=== PATIENT | female | born 1935 | race Caucasian/White ===

== ENCOUNTER 2019-02-20 10:32 | Inpatient (IN) | payer MEDICARE, OTHER ==
[2019-02-20 11:12] LABS: #Lymphocytes 1.5 thou/uL (1.20-3.40); #Monocytes 0.6 thou/uL (0.11-0.59); #Neutrophils 4.6 thou/uL (1.40-6.50); %Basophils 0.6 % (0.0-1.0); %Eosinophils 0.6 % (0.0-10.0); %Lymphocytes 21.7 % (21.0-51.0); %Monocytes 8.5 % (0.0-10.0); %Neutrophils 68.5 % (42.0-75.0); Hemoglobin 12.2 g/dL (12.0-16.0); Mean Corpuscular Hemoglobin 33.7 pg (27.0-31.0); Mean Platelet Volume 6.7 fL (7.4-10.4); Platelet Count 294 thou/uL (130-400); RBC Distribution Width 12.1 % (11.5-14.5); Red Blood Cell (RBC) Count 3.63 mill/uL (4.20-5.40); White Blood Cell (WBC) Count 6.7 thou/uL (4.8-10.8)
[2019-02-20 11:21] LABS: Bacteria/HPF 4+ HPF (None Seen); Bilirubin Negative (Negative); Blood, Urine 1+ (Negative); Clarity Turbid (Clear); Glucose, Urine (Dipstick) Normal (Negative); Leukocyte Negative Leu/uL (Negative); Nitrite Negative (Negative); Protein, Urine (Dipstick) Negative (Neg-Trace); RBC/HPF 0-3 HPF (0-3); Squamous Epithelial 0-3 HPF (0-3); Urobilinogen Normal mg/dL (Less than 2); WBC/HPF 0-3 HPF (0-3)
--- NOTE | 2019-02-20 11:24 | RAD ---
Exam: Chest one view HISTORY:Altered mental status. Decreased O2 saturation Comparison: None FINDINGS: Cardiac silhouette: Normal Aorta: Unremarkable Pulmonary vessels: Normal Costophrenic angles: Clear LUNGS: Bibasilar opacities. Pneumothorax: None Osseous abnormalities: None IMPRESSION: Bibasilar opacities due to atelectasis, pneumonia or aspiration. Continued surveillance i s recommended.
[2019-02-20 11:37] LABS: ALT (SGPT) 24 U/L (8-55); AST (SGOT) 21 U/L (5-34); Albumin 4.4 g/dL (3.4-4.8); Alkaline Phosphatase 105 U/L (40-110); Anion Gap 16 mmol/L (10-20); BUN (Urea Nitrogen) 19 mg/dL (9.8-20.1); Bilirubin, Total 0.3 mg/dL (0.2-1.2); Calc. Creatinine Clearance 0 mL/min (70-130); Calcium 9.5 mg/dL (7.8-10.44); Carbon Dioxide 25 mmol/L (23-31); Chloride 101 mmol/L (98-107); Estimated GFR-MDRD 45; Globulin 2.8 g/dL (2.4-3.5); Glucose 120 mg/dL (83-110); Potassium 4.6 mmol/L (3.5-5.1); Protein, Total 7.2 g/dL (6.0-8.3); Sodium 137 mmol/L (136-145)
[2019-02-20] MEDS ORDERED: cefTRIAXone\\ROCEPHIN 1 GM VIAL ONE ×2 (11:41→12:25)
[2019-02-20] MEDS ORDERED: Sodium Chloride 0.9% 100 ML ONE (11:41)
--- NOTE | 2019-02-20 11:51 | CT ---
Head CT without contrast 02/20/2019: HISTORY: Dementia, altered mental status TECHNIQUE: Axial CT imaging at 5 mm intervals from vertex through skull base without contrast FINDINGS: The visualized paranasal sinuses and mastoid air cells are well aerated. No displaced blaire rial fracture. No intracranial hemorrhage, midline shift, or mass effect. There is cerebral volume loss and prominence of the CSF containing spaces, particularly the lateral v entricles. The degree of lateral ventricular dilation appears slightly out of proportion for the degree of cerebral volume loss. There is periventricular and deep white matter hypodensity suggesting small vessel disease. Transependymal flow of CSF cannot be fully excluded. IMPRESSION: No intracranial hemorrhage. Prominence of the lateral ventricles with periventricular hyp odensity. This constellation of findings may signify normal pressure hydrocephalus. Clinical correlation is required as an alternative consideration would be cerebral volume loss and significant small vessel disease.
[2019-02-20] MEDS ORDERED: Acetaminophen 650 MG Suppository PR PRN (14:07)
[2019-02-20] MEDS ORDERED: Acetaminophen 325 MG TAB PO PRN (14:07)
[2019-02-20] MEDS ORDERED: Ondansetron PF 4 MG/2 ML Vial IVP PRN (14:07)
[2019-02-20] MEDS ORDERED: Ondansetron ODT 4 MG TAB PO PRN (14:07)
[2019-02-20] MEDS ORDERED: Sodium Chloride 0.9% 1,000 ML IV SCH (14:15)
--- NOTE | 2019-02-20 14:19 | PDOC.HHP ---
Hospitalist HPI - History of Present Illness AMS History of Present Illness: Ms. Vasquez is an 84 year old woman presenting, per ED, with AMS (known dementia at baseline) and possible UTI. Transferred here from [facility]. Patient reportedly had low sats and was more lethargic than usual. Difficulty obtaining information from patient given underlying dementia. She is not very communicative. ED Course: Laboratory studies notable for elevated lactic acid 4.1, FBC normal. LFTs unremarkable. Creatinine elevated at 1.14, GFR is 45. No previous to compare to. UA notable for 1+ blood, negative for nitrates, WBC and leukocyte esterase. Bacteria 4+. CXR showed bibasilar opacities said to represent atelectasis vs. pneumonia vs. aspiration. CT Head without any acute intracranial hemorrhage. There was prominence of lateral ventricles with periventricular hypodensity, may signify normal pressure hydrocephalus. Alternative would be cerebral volume loss and significant vessel disease. She was given IVF and started on IV Abx (Ceftriaxone). Hospitalist ROS - Review of Systems ROS unobtainable: due to mental status (Undelrying dementia, potentially worse from baseline) Hospitalist History - Past Medical History Source: RN notes reviewed Cardiac: reports: HTN Psych: reports: Depression, Other (Alzheimer's, Aggression, Paranoia) Musculoskeletal: reports: Osteoarthritis Other Medical History: Vitamin D Deficiency Venous insufficiency Edema - Social History Alcohol: reports: None Drugs: reports: none Living Situation: Retirement - Exam General Appearance: NAD Eye: PERRL, anicteric sclera ENT: normocephalic atraumatic, no oropharyngeal lesions Neck: supple Heart: RRR, no murmur, no gallops Respiratory: CTAB, no wheezes, no rales, no ronchi, normal chest expansion, no tachypnea Gastrointestinal: soft, non-tender, non-distended, normal bowel sounds, no palpable masses, no guarding, no rigidity Extremities: no cyanosis, no clubbing, no edema Skin: normal turgor, no lesions, no rashes Neurological - other findings: Able to follow some commands Musculoskeletal: normal tone, normal strength Hospitalist Results - Labs Result Diagrams: 02/20/19 11:01 02/20/19 14:48 Lab results: WBC 6.7 thou/uL (4.8-10.8) 02/20/19 11:01 Hgb 12.2 g/dL (12.0-16.0) 02/20/19 11:01 Hct 37.1 % (36.0-47.0) 02/20/19 11:01 MCV 102.0 fL (78.0-98.0) H 02/20/19 11:01 Plt Count 294 thou/uL (130-400) 02/20/19 11:01 Neutrophils % 68.5 % (42.0-75.0) 02/20/19 11:01 Sodium 137 mmol/L (136-145) 02/20/19 11:01 Potassium 4.6 mmol/L (3.5-5.1) 02/20/19 11:01 Chloride 101 mmol/L (98-107) 02/20/19 11:01 Carbon Dioxide 25 mmol/L (23-31) 02/20/19 11:01 BUN 19 mg/dL (9.8-20.1) 02/20/19 11:01 Creatinine 1.14 mg/dL (0.6-1.1) H 02/20/19 11:01 Glucose 120 mg/dL (83-110) H 02/20/19 11:01 Lactic Acid 4.1 mmol/L (0.5-2.2) H* 02/20/19 11:01 Calcium 9.5 mg/dL (7.8-10.44) 02/20/19 11:01 Total Bilirubin 0.3 mg/dL (0.2-1.2) 02/20/19 11:01 AST 21 U/L (5-34) 02/20/19 11:01 ALT 24 U/L (8-55) 02/20/19 11:01 Alkaline Phosphatase 105 U/L (40-110) 02/20/19 11:01 Serum Total Protein 7.2 g/dL (6.0-8.3) 02/20/19 11:01 Albumin 4.4 g/dL (3.4-4.8) 02/20/19 11:01 Urine Ketones Negative mg/dL (Negative) 02/20/19 10:56 Urine Blood 1+ (Negative) A 02/20/19 10:56 Urine Nitrite Negative (Negative) 02/20/19 10:56 Ur Leukocyte Esterase Negative Aiyana/uL (Negative) 02/20/19 10:56 Urine RBC 0-3 HPF (0-3) 02/20/19 10:56 Urine WBC 0-3 HPF (0-3) 02/20/19 10:56 Ur Squamous Epith Cells 0-3 HPF (0-3) 02/20/19 10:56 Urine Bacteria 4+ HPF (None Seen) A 02/20/19 10:56 - Radiology Interpretation CT scan - head Status: report reviewed by me Hospitalist H&P A/P - Problem (1) Lactic acid acidosis Code(s): E87.2 - ACIDOSIS Status: Acute (2) ROGERS (acute kidney injury) Code(s): N17.9 - ACUTE KIDNEY FAILURE, UNSPECIFIED Status: Acute (3) Lethargy Code(s): R53.83 - OTHER FATIGUE Status: Acute (4) UTI (urinary tract infection) Status: Acute (5) History of hypertension Code(s): Z86.79 - PERSONAL HISTORY OF OTHER DISEASES OF THE CIRCULATORY SYSTEM Status: Acute (6) History of edema Code(s): Z87.898 - PERSONAL HISTORY OF OTHER SPECIFIED CONDITIONS Status: Acute (7) Dementia Code(s): F03.90 - UNSPECIFIED DEMENTIA WITHOUT BEHAVIORAL DISTURBANCE Status: Acute - Plan Plan: IV abx, Zosyn as per Dr. Guadarrama Continue IVF, 125 cc/hr NS, will add BNP to labs given history of edema. Further imaging with CT Chest Repeat BMP to assess for renal function improvement, repeat lactic acid. Bladder scan to assess for urinary retention. [place]or if necessary. (Straight cath done in ED, RN unsure how much output there was). UCx pending. Monitor BP, hold antihypertensives for now, given BP is on low side. Obtain further information regarding baseline mental status and mobility from nephew/NH. Bedside dysphagia screening, to assess swallow capabilities, NPO until done. Potential risk for aspiration. CODE STATUS: FULL SURROGATE DECISION MAKER/MPOA: marcia Bradley ([phone]).
[2019-02-20 14:43] VITALS: BMI 23.2
[2019-02-20 15:14] LABS: Lactic Acid 1.3 mmol/L (0.5-2.2)
[2019-02-20 15:18] LABS: Anion Gap 13 mmol/L (10-20); BUN (Urea Nitrogen) 21 mg/dL (9.8-20.1); CK (CPK) 136 U/L (29-168); Calc. Creatinine Clearance 42 mL/min (70-130); Calcium 8.5 mg/dL (7.8-10.44); Carbon Dioxide 21 mmol/L (23-31); Chloride 106 mmol/L (98-107); Estimated GFR-MDRD 63; Glucose 102 mg/dL (83-110); Magnesium 1.8 mg/dL (1.6-2.6); Potassium 4.4 mmol/L (3.5-5.1); Sodium 136 mmol/L (136-145)
--- NOTE | 2019-02-20 15:59 | CT ---
CT CHEST WITHOUT CONTRAST: INDICATIONS: Assess for aspiration pneumonitis. CORRELATION: Chest film from 02/20/2019 which showed bibasilar opacities. FINDINGS: Mild vascular congestion. Bibasilar linear and hazy parenchymal changes are seen. There is no conflue nt consolidation or infiltrate. Findings suggest atelectasis, more prominent in the right lung base. A component of infectious infiltrate is not completely excluded, however, there is no consolidation o r confluent infiltrate present. There is a fixed diaphragmatic hernia which does contribute to opacity seen on plain film. The mediastinum is unremarkable. Images through the upper abdomen are unremarkable with evidence of a left renal cyst. IMPRESSION: 1. There are bibasilar opacities which are predominantly pleural-based and reticular in appearance pereira ggesting bibasilar atelectasis, more prominent on the right. A component of infectious infiltrate can not be excluded, especially in the right lung base posteriorly. 2. Moderate sized fixed diaphragmatic hernia. POS: [facility]
[2019-02-20] MEDS: Piperacillin/Tazobactam 3.375 GM in Sodium Chloride 0.9% 100 ML IVPB SCH ×2 (17:04→23:32)
[2019-02-20] MEDS: Sodium Chloride 0.9% 1,000 ML IV SCH (18:49)
[2019-02-20] MEDS ORDERED: Famotidine 20 MG TAB PO SCH (21:00)
[2019-02-21] MEDS ORDERED: Loratadine 10 MG TAB PO PRN (01:16)
[2019-02-21 05:25] LABS: #Lymphocytes 1.4 thou/uL (1.20-3.40); #Monocytes 0.7 thou/uL (0.11-0.59); #Neutrophils 3.8 thou/uL (1.40-6.50); %Basophils 0.3 % (0.0-1.0); %Eosinophils 0.8 % (0.0-10.0); %Lymphocytes 23.6 % (21.0-51.0); %Monocytes 11.3 % (0.0-10.0); %Neutrophils 64.1 % (42.0-75.0); Hemoglobin 10.5 g/dL (12.0-16.0); Mean Corpuscular HGB CONC 32.7 g/dL (32.0-36.0); Mean Corpuscular Hemoglobin 32.5 pg (27.0-31.0); Mean Corpuscular Volume 99.3 fL (78.0-98.0); Mean Platelet Volume 6.9 fL (7.4-10.4); Platelet Count 269 thou/uL (130-400); RBC Distribution Width 12.1 % (11.5-14.5); Red Blood Cell (RBC) Count 3.22 mill/uL (4.20-5.40); White Blood Cell (WBC) Count 5.9 thou/uL (4.8-10.8)
[2019-02-21] MEDS: Piperacillin/Tazobactam 3.375 GM in Sodium Chloride 0.9% 100 ML IVPB SCH ×4 (05:25→23:24)
[2019-02-21] MEDS: Sodium Chloride 0.9% 1,000 ML IV SCH ×2 (05:27→20:23)
[2019-02-21 05:48] LABS: Lactic Acid 2.4 mmol/L (0.5-2.2)
[2019-02-21 05:56] LABS: Anion Gap 14 mmol/L (10-20); BUN (Urea Nitrogen) 16 mg/dL (9.8-20.1); Calc. Creatinine Clearance 40 mL/min (70-130); Calcium 8.9 mg/dL (7.8-10.44); Carbon Dioxide 20 mmol/L (23-31); Chloride 108 mmol/L (98-107); Estimated GFR-MDRD 60; Glucose 99 mg/dL (83-110); Potassium 3.9 mmol/L (3.5-5.1); Sodium 138 mmol/L (136-145)
[2019-02-21] MEDS: risperiDONE 0.25 MG TAB PO SCH ×2 (08:00→20:23)
[2019-02-21] MEDS ORDERED: FLU VACC TS2019-20(65YR UP)/PF 180 MCG/0.5 ML SYRINGE IM ONE (09:00)
[2019-02-21] MEDS: Famotidine/PF 20 mg/2ml Vial SLOW IVP SCH (09:06)
--- NOTE | 2019-02-21 15:27 | PDOC.HOSPP ---
- Subjective Encounter Date: 02/21/19 Encounter Time: 10:30 Subjective: awakens, very slow to respond not fully oriented says she ate her breakfast, not in distress - Objective Vital Signs & Weight: Vital Signs (12 hours) Temp Pulse Resp BP Pulse Ox 02/21/19 11:32 98.6 F 70 18 113/62 95 02/21/19 08:00 92 L 02/21/19 07:23 97.5 F L 80 16 132/79 92 L Weight Admit Weight 119 lb 2 oz Weight 119 lb 2 oz I&O: 02/20/19 02/21/19 02/22/19 06:59 06:59 06:59 Intake Total 1275 Balance 1275 Result Diagrams: 02/21/19 04:53 02/21/19 04:53 Hospitalist ROS - Medication Medications: Active Medications Generic Name Dose Route Start Last Admin Trade Name Freq PRN Reason Stop Dose Admin Famotidine 20 mg 02/21/19 09:00 02/21/19 09:06 Pepcid SLOW IVP 20 mg DAILY CARLA Administration Piperacillin Sod/Tazobactam 100 mls @ 200 mls/hr 02/20/19 18:00 02/21/19 12: 09 Sod 3.375 gm/ Sodium Chloride IVPB 100 mls Q6HR CARLA Administration Sodium Chloride 1,000 mls @ 75 mls/hr 02/20/19 17:18 02/21/19 05:27 Normal Saline 0.9% IV 1,000 mls .[id number] CARLA Administration Memantine 10 mg 02/21/19 09:00 02/21/19 08:00 Namenda PO Not Given BID CARLA Risperidone 0.5 mg 02/21/19 09:00 02/21/19 08:00 Risperidone PO Not Given BID CARLA - Exam General Appearance: NAD, awake alert Eye: PERRL, anicteric sclera ENT: no oropharyngeal lesions, dry oral mucosa Neck: supple, no JVD Heart: RRR, no murmur Respiratory: no wheezes, no rales Gastrointestinal: soft, non-tender, non-distended, normal bowel sounds Extremities: no cyanosis, no edema Neurological: cranial nerve grossly intact, no focal deficits Hosp A/P (1) UTI (urinary tract infection) Status: Acute Qualifiers: Urinary tract infection type: acute cystitis Hematuria presence: without hematuria Qualified Code(s): N30.00 - Acute cystitis without hematuria (2) Sepsis Code(s): A41.9 - SEPSIS, UNSPECIFIED ORGANISM Status: Acute Qualifiers: Sepsis type: Escherichia coli Sepsis acute organ dysfunction status: without acute organ dysfunction Qualified Code(s): A41.51 - Sepsis due to Escherichia coli [E. coli] (3) HTN (hypertension) Code(s): I10 - ESSENTIAL (PRIMARY) HYPERTENSION Status: Chronic Qualifiers: Hypertension type: essential hypertension Qualified Code(s): I10 - Essential (primary) hypertension (4) Dementia Code(s): F03.90 - UNSPECIFIED DEMENTIA WITHOUT BEHAVIORAL DISTURBANCE Status: Chronic Qualifiers: Dementia type: Alzheimer's disease (5) Acute metabolic encephalopathy Code(s): G93.41 - METABOLIC ENCEPHALOPATHY Status: Acute - Plan is on zosyn, await full urine culture results, prelim is growing e.coli gentle iv hydration encourage po intake d/w nephew and POA , gave full updates, pt is DNAR continue coreg, risperdal, fluvoxamine hemostable
[2019-02-21] MEDS: Losartan 25 MG TAB PO SCH (16:57)
[2019-02-21] MEDS: Famotidine 20 MG TAB PO SCH (16:58)
[2019-02-22] MEDS: Piperacillin/Tazobactam 3.375 GM in Sodium Chloride 0.9% 100 ML IVPB SCH ×4 (05:55→23:35)
[2019-02-22] MEDS: Famotidine/PF 20 mg/2ml Vial SLOW IVP SCH (09:09)
[2019-02-22] MEDS: Losartan 25 MG TAB PO SCH (09:10)
[2019-02-22] MEDS: risperiDONE 0.25 MG TAB PO SCH (09:11)
[2019-02-22] MEDS: Famotidine 20 MG TAB PO SCH (09:12)
[2019-02-22] MEDS: Sodium Chloride 0.9% 1,000 ML IV SCH ×2 (09:30→20:11)
[2019-02-22] MEDS ORDERED: Haloperidol Lactate 5 MG/ML VIAL SLOW IVP PRN (12:23)
--- NOTE | 2019-02-22 14:01 | PDOC.HOSPP ---
- Subjective Subjective: Seen and examined. Patient makes a few words, denies pain. She does not answer review of systems questions accurately. The patient appears very anxious and hyperventilating when I'm talking with her and asking her simple questions like if she is hurting or she is breathing okay. We'll adjust mood stabilizing medications to keep the patient calm. Patient responding to antibiotic therapy, fevers resolving. Following culture data. - Objective Vital Signs & Weight: Vital Signs (12 hours) Temp Pulse Resp BP Pulse Ox 02/22/19 08:00 94 L 02/22/19 07:33 98.2 F 57 L 18 108/64 94 L Weight Admit Weight 119 lb 2 oz Weight 119 lb 2 oz I&O: 02/21/19 02/22/19 02/23/19 06:59 06:59 06:59 Intake Total 1275 2170 240 Balance 1275 2170 240 Result Diagrams: 02/21/19 04:53 02/21/19 04:53 Radiology Reviewed by me: Yes (CT chest with right lower lobe infiltrate) Hospitalist ROS - Review of Systems All other systems reviewed; all pertinent +/- noted in HPI/Subj - Medication Medications: Active Medications Generic Name Dose Route Start Last Admin Trade Name Freq PRN Reason Stop Dose Admin Acetaminophen 650 mg 02/20/19 14:07 02/21/19 20:23 Tylenol PO 650 mg Q4H PRN Administration Headache/Fever/Mild Pain (1-3) Cholecalciferol 2,000 units 02/21/19 09:00 02/22/19 09:11 Vitamin D3 PO 2,000 units DAILY CARLA Administration Famotidine 20 mg 02/21/19 09:00 02/22/19 09:09 Pepcid SLOW IVP 20 mg DAILY CARLA Administration Famotidine 20 mg 02/21/19 09:00 02/22/19 09:12 Pepcid PO Not Given DAILY CARLA Fluvoxamine Maleate 50 mg 02/21/19 09:00 02/22/19 09:13 Luvox PO 50 mg BID CARLA Administration Piperacillin Sod/Tazobactam 100 mls @ 200 mls/hr 02/20/19 18:00 02/22/19 12: 18 Sod 3.375 gm/ Sodium Chloride IVPB 100 mls Q6HR CARLA Administration Sodium Chloride 1,000 mls @ 75 mls/hr 02/20/19 17:18 02/21/19 20:23 Normal Saline 0.9% IV 1,000 mls .[id number] CARLA Administration Losartan Potassium 12.5 mg 02/21/19 09:00 02/22/19 09:10 Cozaar PO 12.5 mg DAILY CARLA Administration Memantine 10 mg 02/21/19 09:00 02/22/19 09:12 Namenda PO 10 mg BID CARLA Administration - Exam General Appearance: ill appearing Eye: PERRL ENT: normocephalic atraumatic, moist mucosa Neck: supple, symmetric, no lymphadenopathy Heart: no murmur, no gallops, no rubs Respiratory: no rales, normal chest expansion, no tachypnea, rhonchi, wheezes Respiratory - other findings: Lower lung felix with few scattered wheezing and rhonchi Gastrointestinal: soft, non-tender, normal bowel sounds, no guarding, no rigidity Extremities: no edema Skin: no lesions, no rashes Neurological: cranial nerve grossly intact, normal sensation to touch, no focal deficits Musculoskeletal: generalized weakness Psychiatric: oriented to person, flat affect Hosp A/P (1) UTI (urinary tract infection) Status: Acute Qualifiers: Urinary tract infection type: acute cystitis Hematuria presence: without hematuria Qualified Code(s): N30.00 - Acute cystitis without hematuria (2) Pneumonia Code(s): J18.9 - PNEUMONIA, UNSPECIFIED ORGANISM Status: Acute (3) Acute metabolic encephalopathy Code(s): G93.41 - METABOLIC ENCEPHALOPATHY Status: Ruled-out (4) Lactic acid acidosis Code(s): E87.2 - ACIDOSIS Status: Acute (5) Sepsis Code(s): A41.9 - SEPSIS, UNSPECIFIED ORGANISM Status: Acute Qualifiers: Sepsis type: Escherichia coli Sepsis acute organ dysfunction status: without acute organ dysfunction Qualified Code(s): A41.51 - Sepsis due to Escherichia coli [E. coli] (6) Dementia Code(s): F03.90 - UNSPECIFIED DEMENTIA WITHOUT BEHAVIORAL DISTURBANCE Status: Chronic Qualifiers: Dementia type: Alzheimer's disease (7) HTN (hypertension) Code(s): I10 - ESSENTIAL (PRIMARY) HYPERTENSION Status: Chronic Qualifiers: Hypertension type: essential hypertension Qualified Code(s): I10 - Essential (primary) hypertension - Plan Plan: Medical unit broad-spectrum antibiotics urinary culture with E. coli which is aggarwal sensitive patient with infiltrates on CT scan of the chest right lower lung felix community acquired pneumonia breathing well on room air patient's mood disorder not controlled with advanced dementia she is very agitated and occasionally will get combative increase risperidone to 1.0 mg b.i.d. symptomatic therapy as needed for mood disorder with Haldol continue other home medications as able replace electrolytes as needed blood pressure control blood sugar control
[2019-02-22] MEDS: risperiDONE 1 MG TAB PO SCH (20:09)
[2019-02-23] MEDS: Piperacillin/Tazobactam 3.375 GM in Sodium Chloride 0.9% 100 ML IVPB SCH ×4 (05:44→23:52)
[2019-02-23] MEDS: Famotidine/PF 20 mg/2ml Vial SLOW IVP SCH (10:02)
[2019-02-23] MEDS: Losartan 25 MG TAB PO SCH (10:02)
[2019-02-23] MEDS: Famotidine 20 MG TAB PO SCH (10:03)
[2019-02-23] MEDS: risperiDONE 1 MG TAB PO SCH ×2 (10:03→21:18)
[2019-02-23] MEDS: Sodium Chloride 0.9% 1,000 ML IV SCH (15:01)
--- NOTE | 2019-02-23 16:58 | PDOC.HOSPP ---
- Subjective Subjective: Seen and examined. No acute overnight events. Case discussed with nursing staff who states that the patient was agitated into the night and awake and alert up until 4 AM. Patient then slept, ate her breakfast, worked with physical therapy and was able to ambulate at her baseline with therapists. Later this morning when I saw the patient she was resting comfortably. Denies pain. Breathing well on room air. I later discussed the case with power of account director Mario Brownlee at [phone] all questions answered in detail, he is happy with plan of care. - Objective Vital Signs & Weight: Vital Signs (12 hours) Temp Pulse Pulse Resp BP BP Pulse Ox 02/23/19 09:16 59 L 120/57 L 02/23/19 08:00 98.5 F 62 18 133/62 91 L Weight Admit Weight 119 lb 2 oz Weight 119 lb 2 oz I&O: 02/22/19 02/23/19 02/24/19 06:59 06:59 06:59 Intake Total 2170 2420 240 Balance 2170 2420 240 Result Diagrams: 02/21/19 04:53 02/21/19 04:53 Hospitalist ROS - Medication Medications: Active Medications Generic Name Dose Route Start Last Admin Trade Name Freq PRN Reason Stop Dose Admin Acetaminophen 650 mg 02/20/19 14:07 02/21/19 20:23 Tylenol PO 650 mg Q4H PRN Administration Headache/Fever/Mild Pain (1-3) Cholecalciferol 2,000 units 02/21/19 09:00 02/23/19 10:02 Vitamin D3 PO 2,000 units DAILY CARLA Administration Famotidine 20 mg 02/21/19 09:00 02/23/19 10:03 Pepcid PO Not Given DAILY CARLA Fluvoxamine Maleate 50 mg 02/21/19 09:00 02/23/19 10:03 Luvox PO 50 mg BID CARLA Administration Haloperidol Lactate 5 mg 02/22/19 12:23 02/22/19 15:14 Haldol SLOW IVP 5 mg Q4H PRN Administration Agitation Piperacillin Sod/Tazobactam 100 mls @ 200 mls/hr 02/20/19 18:00 02/23/19 15: 00 Sod 3.375 gm/ Sodium Chloride IVPB 100 mls Q6HR CARLA Administration Sodium Chloride 1,000 mls @ 75 mls/hr 02/20/19 17:18 02/23/19 15:01 Normal Saline 0.9% IV 1,000 mls .[id number] CARLA Administration Losartan Potassium 12.5 mg 02/21/19 09:00 02/23/19 10:02 Cozaar PO 12.5 mg DAILY CARLA Administration Memantine 10 mg 02/21/19 09:00 02/23/19 10:02 Namenda PO 10 mg BID CARLA Administration Risperidone 1 mg 02/22/19 21:00 02/23/19 10:03 Risperidone PO 1 mg BID CARLA Administration Hosp A/P (1) UTI (urinary tract infection) Status: Acute Qualifiers: Urinary tract infection type: acute cystitis Hematuria presence: without hematuria Qualified Code(s): N30.00 - Acute cystitis without hematuria (2) Pneumonia Code(s): J18.9 - PNEUMONIA, UNSPECIFIED ORGANISM Status: Acute (3) Acute metabolic encephalopathy Code(s): G93.41 - METABOLIC ENCEPHALOPATHY Status: Ruled-out (4) Lactic acid acidosis Code(s): E87.2 - ACIDOSIS Status: Acute (5) Sepsis Code(s): A41.9 - SEPSIS, UNSPECIFIED ORGANISM Status: Acute Qualifiers: Sepsis type: Escherichia coli Sepsis acute organ dysfunction status: without acute organ dysfunction Qualified Code(s): A41.51 - Sepsis due to Escherichia coli [E. coli] (6) Dementia Code(s): F03.90 - UNSPECIFIED DEMENTIA WITHOUT BEHAVIORAL DISTURBANCE Status: Chronic Qualifiers: Dementia type: Alzheimer's disease (7) HTN (hypertension) Code(s): I10 - ESSENTIAL (PRIMARY) HYPERTENSION Status: Chronic Qualifiers: Hypertension type: essential hypertension Qualified Code(s): I10 - Essential (primary) hypertension - Plan Plan: Medical unit broad-spectrum antibiotics urinary culture with E. coli which is aggarwal sensitive, will de escalate to oral ABX in the next 24 hours if blood cultures remain negative patient with infiltrates on CT scan of the chest right lower lung felix community acquired pneumonia breathing well on room air patient's mood disorder not controlled with advanced dementia she is very agitated and occasionally will get combative Continue risperidone to 1.0 mg b.i.d. symptomatic therapy as needed for mood disorder with Haldol continue other home medications as able replace electrolytes as needed blood pressure control blood sugar control Discuss case with Mario Brownlee who is power of account director at [phone]. All questions answered in detail. He is happy with plan of care.
[2019-02-24] MEDS: Piperacillin/Tazobactam 3.375 GM in Sodium Chloride 0.9% 100 ML IVPB SCH ×2 (05:36→11:31)
[2019-02-24] MEDS: Famotidine 20 MG TAB PO SCH (07:59)
[2019-02-24] MEDS: risperiDONE 1 MG TAB PO SCH (07:59)
[2019-02-24] MEDS: Losartan 25 MG TAB PO SCH (07:59)
[2019-02-24] MEDS: Sodium Chloride 0.9% 1,000 ML IV SCH ×2 (08:00→15:07)
[2019-02-24 08:13] VITALS: BP 139/84; TEMP 98.3
--- NOTE | 2019-02-24 21:57 | DIS ---
DATE OF ADMISSION: 02/20/2019 DATE OF DISCHARGE: 02/24/2019 REASON FOR HOSPITALIZATION: Altered mental status and urinary tract infection. SIGNIFICANT FINDINGS: The patient is found to have acute urinary tract infection. PROCEDURES PERFORMED AND TREATMENTS RENDERED: The patient had maximum medical therapy including IV fluid resuscitation, empiric antibiotics were started for urinary tract infection, and then deescalated to culture and sensitivity when able. The patient recommended safe for discharge on 02/24/2019. CONDITION ON DISCHARGE: Stable. SPECIFIC INSTRUCTIONS FOR THE PATIENT/FAMILY: 1. The patient is recommended to complete a full course of oral antibiotics for resolution of urinary tract infection. 2. The patient is recommended to take all other medications as directed by admitting physician at [facility], where she is a chronic resident. 3. The patient is recommended to follow up with all specialists as directed. 4. The patient is recommended to return to acute care hospital immediately if signs or symptoms return, worsen, or any other new symptoms occur. DISCHARGE MEDICATIONS: Please see full discharge medication list for details with the following new medications: 1. Nitrofurantoin 100 mg extended release one tablet p.o. b.i.d. for 7 days, 14 tablets. All other medications were continued without changes. 2. Claritin 10 mg one tablet p.o. daily p.r.n. allergy symptoms. 3. Tylenol 650 mg one tablet p.o. q.4 hours p.r.n. pain or fever. 4. Vitamin D3 of 2000 units one tablet p.o. daily. 5. Risperidone 0.5 mg one tablet p.o. b.i.d. 6. Namenda 10 mg one tablet p.o. b.i.d. 7. Losartan 12.5 mg one tablet p.o. daily. 8. Fluvoxamine 50 mg one tablet p.o. b.i.d. HOSPITAL COURSE: Ms. Vasquez is an 84-year-old female who presented to [facility] on 02/20/2019, with altered mental status and urinary tract infection. The patient was admitted to medical unit for close management. The patient had blood cultures and urine cultures. Please see full culture data for details. The patient's blood cultures remaining with no growth to date. The patient's urinalysis and urine culture were significant for E coli growing in the urine, which was found to be sensitive to all antibiotics. The patient was transitioned to oral antibiotics on 02/24/2019. The patient has been afebrile since admission. The patient's white blood cell count has been normal. The patient's metabolic panel has been normal and renal function and electrolytes are in good repair. The patient is recommended safe for discharge with a full course of oral antibiotics with nitrofurantoin one tablet p.o. b.i.d. for 7 days. The patient is recommended to continue all other medications as directed by admitting physician at [facility], where she is a chronic resident. The patient is recommended to follow up with all specialists in the outpatient setting as directed by admitting physician at [facility], where she is a chronic resident. The patient is recommended to return to acute care hospital immediately if signs or symptoms return, worsen, or any other new symptoms occur. TIME SPENT: Greater than 33 minutes spent coordinating care and discharge process for this patient. Job ID: [id number]
== END 2019-02-24 17:21 | DRG 871 ==
LOC: ERS 10:32 → T4-A 12:44
PROVIDERS: ADMIT Internal Medicine; ATTEND Internal Medicine
DX: A41.51 Sepsis due to Escherichia coli [E. coli] (principal); J18.9 Pneumonia, unspecified organism; E87.2 Acidosis; N17.9 Acute kidney failure, unspecified; N30.00 Acute cystitis without hematuria; I95.9 Hypotension, unspecified; F32.9 Major depressive disorder, single episode, unspecified; M19.90 Unspecified osteoarthritis, unspecified site; I10 Essential (primary) hypertension; G30.9 Alzheimer's disease, unspecified; F02.80 Dementia in other diseases classified elsewhere, unspecified severity, without behavioral disturbance, psychotic disturbance, mood disturbance, and anxiety; E55.9 Vitamin D deficiency, unspecified; Z88.1 Allergy status to other antibiotic agents; Z88.0 Allergy status to penicillin; Z88.2 Allergy status to sulfonamides; Z88.8 Allergy status to other drugs, medicaments and biological substances
CPT/HCPCS: 36415; 51701; 70450; 71045; 71250; 80048; 80053; 81003; 81015; 82550; 83605; 83735; 83880; 84145; 85025; 87040; 87077; 87086; 87186; 93005; 96361; 96365; A4353; J0696; J1630; J2543; J3490; S0028

== ENCOUNTER 2019-03-31 15:27 | Emergency (ER) | payer MEDICARE, OTHER ==
--- NOTE | 2019-03-31 17:20 | CT ---
CT head noncontrast HISTORY: Fall. Head injury. COMPARISON: 02/20/2019. FINDINGS: There is no evidence of acute intracranial hemorrhage or infarct. Ventricles remain diffuse ly prominent. Chronic ischemic small vessel disease are similar in appearance to the previous exam. Visualized paranasal sinuses remain well-aerated. IMPRESSION: No acute intracranial hemorrhage evident. Persistent ventricular prominence. Clinical correlation regarding other signs and symptoms of normal pressure hydrocephalus is required. Findings are stable.
--- NOTE | 2019-03-31 17:43 | RAD ---
Chest one view HISTORY: Fall. Chest pain. COMPARISON: 02/20/2019. FINDINGS: Cardiac silhouette is magnified by projection. Shallow inspiration accentuates pulmonary ma rkings. Mediastinum is midline. No lobar consolidation or evidence of pneumothorax. Pleural calcification at the apices is similar in appearance to the prior exam. Osseous structures are demine ralized. IMPRESSION: Chronic-type findings are stable. No active cardiopulmonary abnormalities are demonstrate d.
== END 2019-03-31 19:49 | disposition home or self-care (01) ==
LOC: ERS 15:27
DX: S50.02XA Contusion of left elbow, initial encounter (principal); W19.XXXA Unspecified fall, initial encounter
CPT/HCPCS: 70450; 71045

== ENCOUNTER 2019-05-21 08:09 | Emergency (ER) | payer MEDICARE, OTHER ==
[2019-05-21] MEDS ORDERED: Haloperidol Lactate 5 MG/ML VIAL ONE (08:14)
[2019-05-21 08:31] LABS: #Basophils 0.1 thou/uL (0.0-0.2); #Lymphocytes 1.7 thou/uL (1.20-3.40); #Monocytes 0.5 thou/uL (0.11-0.59); #Neutrophils 2.8 thou/uL (1.40-6.50); %Basophils 1.2 % (0.0-1.0); %Eosinophils 0.6 % (0.0-10.0); %Lymphocytes 33.1 % (21.0-51.0); %Monocytes 9.7 % (0.0-10.0); %Neutrophils 55.5 % (42.0-75.0); Hemoglobin 12.6 g/dL (12.0-16.0); Mean Corpuscular HGB CONC 32.7 g/dL (32.0-36.0); Mean Corpuscular Hemoglobin 32.7 pg (27.0-31.0); Mean Platelet Volume 7.9 fL (7.4-10.4); Platelet Count 316 thou/uL (130-400); RBC Distribution Width 12.6 % (11.5-14.5); Red Blood Cell (RBC) Count 3.85 mill/uL (4.20-5.40)
--- NOTE | 2019-05-21 08:32 | CT ---
EXAM: CT brain without contrast HISTORY: Left-sided facial drooping COMPARISON: 03/31/2019 TECHNIQUE: Multiple contiguous axial images were obtained and a CT of the brain without contrast. FINDINGS: Diffuse cerebral atrophy is seen. There are scattered hypodensities in the subcortical and periventricular white matter consistent with small vessel ischemic disease. There is no evidence of hydrocephalus, intracranial hemorrhage, or extra-axial fluid collection. The calvarium and overlying soft tissues are unremarkable. The visualized paranasal sinuses and masto id air cells are well aerated. IMPRESSION: No evidence of acute intracranial abnormality Dr. Hernandez notified of findings at 8:28 AM on 05/21/2019.
[2019-05-21 08:56] LABS: ALT (SGPT) 15 U/L (8-55); AST (SGOT) 24 U/L (5-34); Albumin 4.2 g/dL (3.4-4.8); Alkaline Phosphatase 110 U/L (40-110); Anion Gap 15 mmol/L (10-20); BUN (Urea Nitrogen) 17 mg/dL (9.8-20.1); Bilirubin, Total 0.4 mg/dL (0.2-1.2); Calc. Creatinine Clearance 0 mL/min (70-130); Calcium 9.3 mg/dL (7.8-10.44); Carbon Dioxide 24 mmol/L (23-31); Chloride 107 mmol/L (98-107); Estimated GFR-MDRD 65; Globulin 2.9 g/dL (2.4-3.5); Glucose 94 mg/dL (83-110); Potassium 5.4 mmol/L (3.5-5.1); Protein, Total 7.1 g/dL (6.0-8.3); Sodium 141 mmol/L (136-145)
== END 2019-05-21 10:30 | disposition home or self-care (01) ==
LOC: ERS 08:09
DX: F03.90 Unspecified dementia, unspecified severity, without behavioral disturbance, psychotic disturbance, mood disturbance, and anxiety (principal); H01.006 Unspecified blepharitis left eye, unspecified eyelid; H01.003 Unspecified blepharitis right eye, unspecified eyelid; I10 Essential (primary) hypertension; M19.90 Unspecified osteoarthritis, unspecified site; F32.9 Major depressive disorder, single episode, unspecified; Z79.899 Other long term (current) drug therapy; Z79.1 Long term (current) use of non-steroidal anti-inflammatories (NSAID)
CPT/HCPCS: 36416; 70450; 80053; 84484; 85025; 93005; 96374; J1630